=== PATIENT | female | born 1955 | race Caucasian/White ===

== ENCOUNTER → 2019-05-19 | Outpatient (CLI) | payer BC | END | disposition home or self-care (01) | LOC: ROC 08:10 | PROVIDERS: ATTEND Radiology Radiation Oncology | DX: C54.1 Malignant neoplasm of endometrium (principal) | CPT/HCPCS: 99214; G0463 ==

== ENCOUNTER 2019-07-12 06:54 | Outpatient (CLI) | payer BC, MEDICARE | END 2019-07-12 23:59 | disposition home or self-care (01) | LOC: ROC 06:54 | PROVIDERS: ATTEND Radiology Radiation Oncology | DX: C54.1 Malignant neoplasm of endometrium (principal); Z68.41 Body mass index [BMI] 40.0-44.9, adult; Z88.8 Allergy status to other drugs, medicaments and biological substances; Z88.1 Allergy status to other antibiotic agents | CPT/HCPCS: 99212; G0463 ==

== ENCOUNTER → 2020-01-25 | Outpatient (CLI) | payer BC, MEDICARE | END | disposition home or self-care (01) | LOC: ROC 07:53 | PROVIDERS: ATTEND Radiology Radiation Oncology | DX: C54.1 Malignant neoplasm of endometrium (principal) | CPT/HCPCS: 99212; G0463 ==